=== PATIENT | female | born 1950 | race Caucasian/White ===

== ENCOUNTER → 2017-01-29 | Outpatient (CLI) | payer MEDICARE, OTHER ==
[~2017-01-29] MED LIST: ALBU0.632 IH; DICL75TA2 PO; DICY10CA59 PO; ESTR0.5T PO; FLUO20CA25 PO; GABA-486 PO; KRIL1CAP10 PO; LISI1TAB8 PO; LVT.1T PO; MEMA10TA PO; OMEP-10 GT; POTA2TAB15 PO; SIMV20TA3 PO; SUCR1TAB23 PO; VITAMINE B12 PO; VITAMINE PO
--- NOTE | 2017-01-29 21:26 | Diagnostic Imaging Report ---
EXAMINATION: Ultrasound of the neck. INDICATION: Swelling along the lower aspect of the neck bilaterally in the supraclavicular region. FINDINGS: Bilateral supraclavicular areas of swelling are examined with no underlying soft tissue mass or fluid collection identified. IMPRESSION: Negative study. Dictated by: Dictated on workstation # [id number]
== END ==
LOC: RAD 11:15
PROVIDERS: ATTEND Nurse Practitioner Family
DX: R22.1 Localized swelling, mass and lump, neck (principal)
CPT/HCPCS: 76536

== ENCOUNTER → 2017-03-22 | Outpatient (CLI) | payer MEDICARE, OTHER ==
--- NOTE | 2017-03-22 12:11 | Diagnostic Imaging Report ---
INDICATION: Screening for osteoporosis. FINDINGS: Bone mineral density of the lumbar spine and both hips was performed. The bone mineral density of the lumbar spine from L2-L4 is 1.274 with a T score of 0.6. The bone mineral density of the left femoral neck is 1.085 with a T score of 0.3. Bone mineral density right femoral neck is 1.118 with a T score of 0.6. IMPRESSION: Normal bone mineral density of the lumbar spine and bilateral femoral necks. Dictated by: Dictated on workstation # [id number]
== END ==
LOC: RAD 10:37
PROVIDERS: ATTEND Nurse Practitioner Family
DX: Z13.820 Encounter for screening for osteoporosis (principal); Z12.31 Encounter for screening mammogram for malignant neoplasm of breast; M81.0 Age-related osteoporosis without current pathological fracture
CPT/HCPCS: 77067; 77080

== ENCOUNTER → 2017-04-18 | Outpatient (CLI) | payer MEDICARE, OTHER ==
--- NOTE | 2017-04-18 14:05 | Diagnostic Imaging Report ---
INDICATION: Right breast density. The patient presents for additional views. Correlation is made with recent screening study from 03/22/2017. The current study was also evaluated with a Computer Aided Detection (CAD) system. The patient returned and 3-D spot compression CC and mediolateral views as well as conventional 3-D ML view was performed. The area of density in the superior right breast appears to represent superimposed fibroglandular tissue. No underlying mass or suspicious calcifications are seen. IMPRESSION: BI-RADS category one Additional views fail to demonstrate a discrete mass. The patient may return to routine annual screening mammography. ACR BI-RADS Category 1: Negative. Result letter will be mailed to the patient. Note: At least 10% of breast cancer is not imaged by mammography. Dictated by: Dictated on workstation # [id number]
== END ==
LOC: RAD 12:28
PROVIDERS: ATTEND Nurse Practitioner Family
DX: R92.2 Inconclusive mammogram (principal)